=== PATIENT | female | born 1970 | race African-American/Black ===

== ENCOUNTER 2017-03-28 08:51 | Day surgery (SDC) | payer MEDICAID ==
[~2017-03-28] VITALS: Ht 177.8 cm; Wt 99.8 kg
[2017-03-28] MEDS ORDERED: DIPHENHYDRAMINE 50MG/ML VIAL IV NR (09:30)
[2017-03-28] MEDS ORDERED: DIPHENHYDRAMINE 50MG/ML VIAL ONE (09:59)
[2017-03-28] MEDS ORDERED: NAPR-217 PO (10:26)
[2017-03-28] MEDS ORDERED: ACETAMINOPHEN 500MG TABLET PO ONE (10:45)
[2017-03-28 11:28] LABS: GLUCOSE CSF 67 mg/dL (41-75)
[2017-03-30 15:09] LABS: MYELIN BASIC PROTEIN CSF 1.1 ng/mL (0.0-1.2)
== END 2017-03-28 15:20 | disposition home or self-care (01) ==
LOC: RAD 08:51
PROVIDERS: ATTEND Psychiatry & Neurology Neurology
DX: G35 Multiple sclerosis (principal)
CPT/HCPCS: 62270; 77003; 82040; 82042; 82784; 82945; 83873; 83916; 84157; 89050; J1200